=== PATIENT | female | born 1955 | race Two or more races ===

== ENCOUNTER → 2017-02-11 | Outpatient (CLI) | payer OTHER, MEDICAID ==
[~2017-02-11] MED LIST: GADOBUTROL 7.5 MMOL/7.5 ML PFS ONE
== END | disposition home or self-care (01) ==
LOC: CFH 09:43
PROVIDERS: ATTEND Internal Medicine Hematology & Oncology
DX: H70.92 Unspecified mastoiditis, left ear (principal); Z85.3 Personal history of malignant neoplasm of breast
CPT/HCPCS: 70553; A9585

== ENCOUNTER → 2017-02-26 | Outpatient (CLI) | payer OTHER, MEDICAID | END | disposition home or self-care (01) | LOC: ROC 08:50 | PROVIDERS: ATTEND Radiology Radiation Oncology | DX: C50.919 Malignant neoplasm of unspecified site of unspecified female breast (principal); C79.31 Secondary malignant neoplasm of brain | CPT/HCPCS: 99214; G0463 ==

== ENCOUNTER → 2017-03-12 | Outpatient (CLI) | payer OTHER, MEDICAID ==
[~2017-03-12] MED LIST changes: +EZET10TA18 PO; -GADOBUTROL 7.5 MMOL/7.5 ML PFS ONE; +GLIP-164 PO; +HYDR-3237 PO; +LISI-167 PO; +LOVA40TA2 PO; +METF500T4 PO; +METO25TA35 PO; +SITA100T PO; +dexamethasone PO
== END ==
LOC: ORIP 11:09 → UNDOADMIN 11:09 → OUT 11:09 → EDSTATUS 12:00 → UNDODISIN 13:00
PROVIDERS: ATTEND Orthopaedic Surgery
DX: Z02.9 Encounter for administrative examinations, unspecified (principal)

== ENCOUNTER → 2017-04-02 | Outpatient (CLI) | payer OTHER, MEDICAID | END | disposition home or self-care (01) | LOC: ROC 13:26 | PROVIDERS: ATTEND Radiology Radiation Oncology | DX: Z08 Encounter for follow-up examination after completed treatment for malignant neoplasm (principal); C79.51 Secondary malignant neoplasm of bone; G89.3 Neoplasm related pain (acute) (chronic); Z92.3 Personal history of irradiation; Z85.3 Personal history of malignant neoplasm of breast | CPT/HCPCS: 99213; G0463 ==

== ENCOUNTER → 2017-04-10 | Outpatient (CLI) | payer OTHER, MEDICAID | END | disposition home or self-care (01) | LOC: PETCFH 08:42 | PROVIDERS: ATTEND Radiology Radiation Oncology | DX: C79.51 Secondary malignant neoplasm of bone (principal); C79.31 Secondary malignant neoplasm of brain; Z85.3 Personal history of malignant neoplasm of breast; Z90.11 Acquired absence of right breast and nipple | CPT/HCPCS: 78306; A9503 ==

== ENCOUNTER → 2017-04-15 | Outpatient (CLI) | payer OTHER, MEDICAID | END | disposition home or self-care (01) | LOC: ROC 11:05 | PROVIDERS: ATTEND Radiology Radiation Oncology | DX: C71.9 Malignant neoplasm of brain, unspecified (principal); Z85.3 Personal history of malignant neoplasm of breast; Z90.11 Acquired absence of right breast and nipple | CPT/HCPCS: 99213; G0463 ==

== ENCOUNTER 2017-04-22 10:54 | Inpatient (IN) | payer OTHER, MEDICAID ==
[~2017-04-22] VITALS: Ht 152.4 cm; Wt 54.1 kg
[2017-04-22] VITALS (8 sets, daily range): BP systolic 84–96; BP diastolic 49–60
[2017-04-22] MEDS ORDERED: SODIUM CHLORIDE 0.9% 1,000 ML IV ONE ×3 (11:43→14:03)
[2017-04-22] MEDS ORDERED: SODIUM CHLORIDE FLUSH 10ML SYR IVF ONE (12:00)
[2017-04-22] MEDS ORDERED: SODIUM CHLORIDE 0.9% 1,000ML IVBOLUS ONE ×2 (12:00→15:30)
[2017-04-22 12:24] LABS: MICROSCOPIC INDICATED
[2017-04-22 12:25] LABS: CULTURE INDICATED? YES
[2017-04-22 12:51] LABS: INTERNATIONAL NORMALIZED RATIO 1.09 (0.93-1.1); PROTHROMBIN TIME 11.2 Seconds (9.6-11.5)
[2017-04-22 12:56] LABS: ALANINE AMINOTRANSFERASE 16 U/L (12-78); ALBUMIN 2.7 g/dL (3.4-5.0); ANION GAP 12 mmol/L (5-15); CALCIUM 6.8 mg/dL (8.5-10.1); CHLORIDE 89 mmol/L (98-107); CREATININE 1.32 mg/dL (0.55-1.02)
[2017-04-22 13:00] LABS: ALKALINE PHOSPHATASE 150 U/L (45-117); BILIRUBIN,TOTAL 0.5 mg/dL (0.2-1.0); TOTAL PROTEIN 7.1 g/dL (6.4-8.2)
[2017-04-22 13:05] LABS: MEAN CORPUSCULAR HEMOGLOBIN 28.1 pg (27.0-34.8); MEAN CORPUSCULAR HGB CONC 33.8 g/dL (32.4-35.8); MEAN CORPUSCULAR VOLUME 83.1 fL (80-100); MEAN PLATELET VOLUME 8.6 fL (7.4-10.4); PLATELET COUNT 56 x10^3/uL (130-400); RED BLOOD COUNT 2.51 x10^6/uL (3.82-5.3); RED CELL DISTRIBUTION WIDTH 18.6 % (9.6-15.2)
[2017-04-22 13:09] LABS: MD YES
[2017-04-22 13:12] LABS: ANISOCYTOSIS 1+; BAND#(MANUAL) 0.08 x10^3/uL; BANDS%(MANUAL) 8 % (0-7); LYMPH#(MANUAL) 0.11 x10^3/uL (1-3.4); LYMPHS% (MANUAL) 11 % (22-44); MONOS#(MANUAL) 0.01 x10^3/uL (0.3-2.7); MONOS% (MANUAL) 1 % (2-9); SEGS% (MANUAL) 80 % (42-75)
[2017-04-22 13:13] LABS: PMNS WITH VACUOLES 1+
[2017-04-22 13:14] LABS: <PLATELET ESTIMATE> DECREASED; LARGE PLATELETS 1+
[2017-04-22] MEDS ORDERED: CEFTRIAXONE PMX 1GM/50ML 50 ML ONE (13:19)
[2017-04-22] MEDS ORDERED: CEFTRIAXONE PMX 1GM/50ML 50 ML IV ONE (13:30)
[2017-04-22 13:35] LABS: ACETONE, SERUM Trace (10mg/dL) mg/dL (Negative)
[2017-04-22] MEDS ORDERED: METF1000 PO (13:37)
[2017-04-22] MEDS ORDERED: ASPI-496 PO (13:37)
[2017-04-22] MEDS ORDERED: GLIP10TA13 PO (13:37)
[2017-04-22] MEDS ORDERED: SITA100T PO (13:37)
[2017-04-22] MEDS ORDERED: METO25TA35 PO (13:37)
[2017-04-22] MEDS ORDERED: HYDR-3240 PO (13:37)
[2017-04-22] MEDS ORDERED: BENZ200C48 PO (13:37)
[2017-04-22] MEDS ORDERED: PALB125C PO (13:37)
[2017-04-22] MEDS ORDERED: LOVA40TA2 PO (13:37)
[2017-04-22] MEDS ORDERED: OMEP-110 PO (13:37)
[2017-04-22] MEDS ORDERED: LISI-167 PO (13:37)
[2017-04-22] MEDS ORDERED: EZET10TA18 PO (13:37)
[2017-04-22] MEDS ORDERED: AZIT250T89 PO (13:37)
[2017-04-22] MEDS ORDERED: SODIUM CHLORIDE FLUSH 10ML SYR IVF PRN (14:30)
[2017-04-22] MEDS ORDERED: ACETAMINOPHEN 325 MG TABLET PO PRN (15:30)
[2017-04-22] MEDS ORDERED: DIPHENHYDRAMINE 25 MG CAPSULE PO PRN (15:30)
[2017-04-22] MEDS ORDERED: ONDANSETRON 2MG/ML, 2ML IVPush PRN (15:30)
[2017-04-22] MEDS ORDERED: METOCLOPRAMIDE 5 MG/ML, 2ML IVPush PRN (15:30)
[2017-04-22] MEDS ORDERED: LORazepam 2 MG/ML, 1ML IVPush PRN (15:30)
[2017-04-22] MEDS ORDERED: ONDANSETRON ODT 4 MG PO PRN (15:30)
[2017-04-22] MEDS: BENZONATATE 100 MG CAPSULE PO SCH ×2 (16:27→21:39)
[2017-04-22] MEDS: INSULIN LISPRO 100 UNITS/ML, PEN SQ-INSULIN SCH ×2 (16:30→21:40)
[2017-04-22 18:29] LABS: CLOSTRIDIUM DIFFICILE ANTIGEN NEGATIVE; CLOSTRIDIUM DIFFICILE TOXIN NEGATIVE (Negative)
[2017-04-22 18:34] LABS: ANION GAP 11 mmol/L (5-15); CALCIUM 6.1 mg/dL (8.5-10.1); CHLORIDE 96 mmol/L (98-107); CREATININE 0.97 mg/dL (0.55-1.02)
[2017-04-22] MEDS ORDERED: VANCOMYCIN PMX 1GM/200ML 200 ML IV ONE (19:00)
[2017-04-22] MEDS ORDERED: VANCOMYCIN PER PHARMACY MC PRN (19:00)
[2017-04-22] MEDS ORDERED: NOREPINEPHRINE 1 MG/ML, 4ML ONE (19:17)
[2017-04-22] MEDS ORDERED: NOREPINEPHRINE 4 MG in SODIUM CHLORIDE 0.9% 246 ML IV PRN (19:30)
[2017-04-22] MEDS ORDERED: PHARMACOKINETIC MONITORING MC PRN (19:30)
[2017-04-22] MEDS ORDERED: PHARMACOKINETIC CONSULTATION MC ONE (19:30)
[2017-04-22 19:52] LABS: ALANINE AMINOTRANSFERASE 11 U/L (12-78); ALBUMIN 1.9 g/dL (3.4-5.0); ANION GAP 10 mmol/L (5-15); CHLORIDE 100 mmol/L (98-107); CREATININE 0.94 mg/dL (0.55-1.02)
[2017-04-22 19:54] LABS: ALKALINE PHOSPHATASE 121 U/L (45-117); BILIRUBIN,TOTAL 1.1 mg/dL (0.2-1.0); TOTAL PROTEIN 5.3 g/dL (6.4-8.2)
[2017-04-22 20:02] LABS: CALCIUM 5.8 mg/dL (8.5-10.1)
[2017-04-22] MEDS: PIPERACILLIN/TAZO/PMX 4.5GM 100 ML IV SCH (20:14)
[2017-04-22 20:20] LABS: MD YES; MEAN CORPUSCULAR HEMOGLOBIN 28.4 pg (27.0-34.8); MEAN CORPUSCULAR HGB CONC 34.4 g/dL (32.4-35.8); MEAN CORPUSCULAR VOLUME 82.5 fL (80-100); MEAN PLATELET VOLUME 8.6 fL (7.4-10.4); RED BLOOD COUNT 3.12 x10^6/uL (3.82-5.3); RED CELL DISTRIBUTION WIDTH 17.6 % (9.6-15.2)
[2017-04-22 20:26] LABS: LYMPHS% (MANUAL) 32 % (22-44); MONOS% (MANUAL) 4 % (2-9); SEGS% (MANUAL) 64 % (42-75)
[2017-04-22 20:28] LABS: ANISOCYTOSIS 1+; PMNS WITH VACUOLES 1+
[2017-04-22 20:29] LABS: <PLATELET ESTIMATE> DECREASED; <PLT MORPHOLOGY> QNS FOR PLT MORPH
[2017-04-22 20:32] LABS: PLATELET COUNT 28 x10^3/uL (130-400)
[2017-04-22 20:38] LABS: LYMPH#(MANUAL) 0.16 x10^3/uL (1-3.4); MONOS#(MANUAL) 0.02 x10^3/uL (0.3-2.7); SEG#(MANUAL) 0.32 x10^3/uL (1.8-6.8)
[2017-04-22] MEDS ORDERED: METOPROLOL TARTRATE 25 MG TABLET PO SCH (21:00)
[2017-04-22] MEDS ORDERED: POTASSIUM CHLORIDE 40 MEQ in SODIUM CHLORIDE 0.9% 100 ML IV ONE (21:30)
[2017-04-22] MEDS ORDERED: CALCIUM GLUCONATE 9.2 MEQ in SODIUM CHLORIDE 0.9% 100 ML IV ONE (21:30)
[2017-04-22] MEDS ORDERED: MAGNESIUM SULFATE PMX 4GM/100M 100 ML IV ONE (21:30)
[2017-04-22] MEDS ORDERED: POTASSIUM CHLORIDE 20 MEQ TAB.ER.PRT PO ONE (21:30)
[2017-04-22] MEDS: LOVASTATIN 40 MG TABLET PO SCH (21:39)
[2017-04-22] MEDS: SODIUM CHLORIDE 0.9% 1,000 ML IV SCH (21:42)
[2017-04-22] MEDS ORDERED: VANCOMYCIN PMX 1GM/200ML 200 ML IV SCH (22:00)
[2017-04-22 22:35] LABS: D-DIMER (DIC) 1.83 ug/mlFEU (0.00-0.52); PROTIME 12.1 Seconds (9.6-11.5)
[2017-04-22] MEDS: ALBUMIN HUMAN 25% 50 ML IV SCH (22:43)
[2017-04-23] MEDS: HYDROcodone/APAP 5/325 TABLET PO PRN ×2 (00:37→21:14)
[2017-04-23] MEDS: morphine SULFATE 10 MG/ML, 1ML IVPush PRN ×2 (00:45→05:19)
[2017-04-23 02:48] VITALS: BP 94/50
[2017-04-23] MEDS: PIPERACILLIN/TAZO/PMX 4.5GM 100 ML IV SCH ×2 (03:09→08:15)
[2017-04-23 05:18] LABS: ALANINE AMINOTRANSFERASE 11 U/L (12-78); ALBUMIN 2.1 g/dL (3.4-5.0); ANION GAP 10 mmol/L (5-15); CALCIUM 6.6 mg/dL (8.5-10.1); CHLORIDE 100 mmol/L (98-107)
[2017-04-23 05:22] LABS: ALKALINE PHOSPHATASE 123 U/L (45-117); BILIRUBIN,TOTAL 1.7 mg/dL (0.2-1.0); CREATININE 0.82 mg/dL (0.55-1.02); TOTAL PROTEIN 5.6 g/dL (6.4-8.2)
[2017-04-23 05:30] LABS: MEAN CORPUSCULAR HEMOGLOBIN 28.3 pg (27.0-34.8); MEAN CORPUSCULAR HGB CONC 34.2 g/dL (32.4-35.8); MEAN CORPUSCULAR VOLUME 82.5 fL (80-100); RED BLOOD COUNT 3.32 x10^6/uL (3.82-5.3)
[2017-04-23 05:49] LABS: MD YES
[2017-04-23 05:53] LABS: MEAN PLATELET VOLUME 8.9 fL (7.4-10.4)
[2017-04-23 05:54] LABS: PLATELET COUNT 20 x10^3/uL (130-400)
[2017-04-23 05:55] LABS: BAND#(MANUAL) 0.05 x10^3/uL; BANDS%(MANUAL) 8 % (0-7); LYMPH#(MANUAL) 0.14 x10^3/uL (1-3.4); LYMPHS% (MANUAL) 24 % (22-44); METAMYELOCYTES# (MANUAL) 0.01 x10^3/uL (0-0); METAMYELOCYTES% (MANUAL) 2 % (0-1); MONOS#(MANUAL) 0.01 x10^3/uL (0.3-2.7); MONOS% (MANUAL) 2 % (2-9); SEG#(MANUAL) 0.38 x10^3/uL (1.8-6.8); SEGS% (MANUAL) 64 % (42-75)
[2017-04-23 05:56] LABS: ANISOCYTOSIS 1+; PMNS WITH VACUOLES 1+
[2017-04-23 06:00] LABS: <PLATELET ESTIMATE> DECREASED; <PLT MORPHOLOGY> NORMAL PLT MORPH
[2017-04-23] MEDS: ALBUMIN HUMAN 25% 50 ML IV SCH ×2 (06:18→15:52)
[2017-04-23] MEDS ORDERED: LISINOPRIL 10 MG TABLET PO SCH (09:00)
[2017-04-23] MEDS ORDERED: OMEPRAZOLE 20 MG CAPSULE.DR PO SCH (09:00)
[2017-04-23] MEDS ORDERED: EZETIMIBE 10 MG TABLET PO SCH (09:00)
[2017-04-23] MEDS ORDERED: PALBOCICLIB HOMEMEDPO SCH (09:00)
[2017-04-23] MEDS ORDERED: VANCOMYCIN PMX 1GM/200ML 200 ML IV SCH (10:00)
[2017-04-23] MEDS: SODIUM CHLORIDE 0.9% 1,000 ML IV SCH ×2 (10:18→16:38)
[2017-04-23] MEDS: BENZONATATE 100 MG CAPSULE PO SCH ×3 (10:20→21:01)
[2017-04-23] MEDS: INSULIN LISPRO 100 UNITS/ML, PEN SQ-INSULIN SCH ×4 (10:21→21:11)
[2017-04-23] MEDS ORDERED: SODIUM CHLORIDE IVPB SCH (16:30)
[2017-04-23] MEDS ORDERED: MEROPENEM 1 GM/50 ML IVPB SCH (16:30)
[2017-04-23] MEDS: MEROPENEM 1 GM in SODIUM CHLORIDE 0.9% 100 ML IV SCH (16:39)
[2017-04-23 17:10] VITALS: BP 112/60
[2017-04-23] MEDS: TBO-FILGRASTIM 480 MCG/0.8 ML SQ SCH (17:41)
[2017-04-23] MEDS: MICAFUNGIN 100 MG in SODIUM CHLORIDE 0.9% 100 ML IV SCH (17:45)
[2017-04-23 19:06] VITALS: BP 93/50
[2017-04-23] MEDS: LOVASTATIN 40 MG TABLET PO SCH (21:01)
[2017-04-24] MEDS: SODIUM CHLORIDE 0.9% 1,000 ML IV SCH ×3 (00:50→13:20)
[2017-04-24] MEDS: MEROPENEM 1 GM in SODIUM CHLORIDE 0.9% 100 ML IV SCH ×4 (00:50→23:55)
[2017-04-24 01:02] VITALS: BP 96/52
[2017-04-24 06:05] LABS: ALANINE AMINOTRANSFERASE 9 U/L (12-78); ANION GAP 7 mmol/L (5-15); CALCIUM 6.7 mg/dL (8.5-10.1); CHLORIDE 107 mmol/L (98-107); CREATININE 0.55 mg/dL (0.55-1.02)
[2017-04-24 06:07] LABS: ALKALINE PHOSPHATASE 111 U/L (45-117); BILIRUBIN,TOTAL 0.5 mg/dL (0.2-1.0); TOTAL PROTEIN 5.1 g/dL (6.4-8.2)
[2017-04-24 06:36] LABS: MD YES; MEAN CORPUSCULAR HEMOGLOBIN 28.1 pg (27.0-34.8); MEAN CORPUSCULAR HGB CONC 34.3 g/dL (32.4-35.8); RED CELL DISTRIBUTION WIDTH 17.6 % (9.6-15.2)
[2017-04-24 06:40] LABS: PLATELET COUNT 14 x10^3/uL (130-400)
[2017-04-24] MEDS: INSULIN LISPRO 100 UNITS/ML, PEN SQ-INSULIN SCH ×4 (07:00→20:43)
[2017-04-24] MEDS: BENZONATATE 100 MG CAPSULE PO SCH ×3 (07:41→20:38)
[2017-04-24 07:49] VITALS: BP 124/76
[2017-04-24 08:01] LABS: BAND#(MANUAL) 0.07 x10^3/uL; BANDS%(MANUAL) 8 % (0-7); LYMPH#(MANUAL) 0.22 x10^3/uL (1-3.4); LYMPHS% (MANUAL) 24 % (22-44); SEGS% (MANUAL) 66 % (42-75)
[2017-04-24 08:02] LABS: MONOS#(MANUAL) 0.02 x10^3/uL (0.3-2.7); MONOS% (MANUAL) 2 % (2-9); SEG#(MANUAL) 0.59 x10^3/uL (1.8-6.8)
[2017-04-24 08:03] LABS: <PLATELET ESTIMATE> DECREASED; <PLT MORPHOLOGY> NORMAL PLT MORPH; ANISOCYTOSIS 1+
[2017-04-24] MEDS: TBO-FILGRASTIM 480 MCG/0.8 ML SQ SCH (08:08)
[2017-04-24 13:40] VITALS: BP 115/63
[2017-04-24] MEDS ORDERED: POTASSIUM PHOS 4.4 MEQ/ML IV ONE ×2 (15:00→16:30)
[2017-04-24] MEDS: MICAFUNGIN 100 MG in SODIUM CHLORIDE 0.9% 100 ML IV SCH (15:27)
[2017-04-24] MEDS ORDERED: POTASSIUM PHOSPHATE 22 MEQ in SODIUM CHLORIDE 0.9% 250 ML IV ONE (16:20)
[2017-04-24] MEDS ORDERED: POTASSIUM CHLORIDE 20 MEQ TAB.ER.PRT PO ONE (16:30)
[2017-04-24 19:40] VITALS: BP 120/65
[2017-04-24] MEDS: LOVASTATIN 40 MG TABLET PO SCH (20:38)
[2017-04-25 01:42] VITALS: BP 119/65
[2017-04-25 04:46] LABS: CHLORIDE 104 mmol/L (98-107)
[2017-04-25 04:47] LABS: ANION GAP 9 mmol/L (5-15); CALCIUM 7.3 mg/dL (8.5-10.1); CREATININE 0.61 mg/dL (0.55-1.02)
[2017-04-25 05:14] LABS: MEAN CORPUSCULAR HEMOGLOBIN 28.3 pg (27.0-34.8); MEAN CORPUSCULAR HGB CONC 34.6 g/dL (32.4-35.8); MEAN CORPUSCULAR VOLUME 81.6 fL (80-100); RED BLOOD COUNT 3.14 x10^6/uL (3.82-5.3); RED CELL DISTRIBUTION WIDTH 17.6 % (9.6-15.2)
[2017-04-25 05:51] LABS: MD YES
[2017-04-25 05:53] LABS: <PLATELET ESTIMATE> DECREASED; ANISOCYTOSIS 1+; BAND#(MANUAL) 0.02 x10^3/uL; BANDS%(MANUAL) 2 % (0-7); LYMPH#(MANUAL) 0.23 x10^3/uL (1-3.4); LYMPHS% (MANUAL) 26 % (22-44); MEAN PLATELET VOLUME 9.9 fL (7.4-10.4); METAMYELOCYTES# (MANUAL) 0.02 x10^3/uL (0-0); METAMYELOCYTES% (MANUAL) 2 % (0-1); MONOS#(MANUAL) 0.02 x10^3/uL (0.3-2.7); MONOS% (MANUAL) 2 % (2-9); SEG#(MANUAL) 0.61 x10^3/uL (1.8-6.8); SEGS% (MANUAL) 68 % (42-75)
[2017-04-25 05:54] LABS: <PLT MORPHOLOGY> NORMAL PLT MORPH
[2017-04-25 05:56] LABS: PLATELET COUNT 16 x10^3/uL (130-400)
[2017-04-25] MEDS: INSULIN LISPRO 100 UNITS/ML, PEN SQ-INSULIN SCH ×4 (07:00→20:53)
[2017-04-25] MEDS: BENZONATATE 100 MG CAPSULE PO SCH ×3 (07:37→20:53)
[2017-04-25] MEDS: POTASSIUM CHLORIDE 20 MEQ TAB.ER.PRT PO SCH ×2 (07:38→17:18)
[2017-04-25] MEDS: MEROPENEM 1 GM in SODIUM CHLORIDE 0.9% 100 ML IV SCH ×3 (07:38→23:38)
[2017-04-25] MEDS ORDERED: MAGNESIUM SULFATE PMX 4GM/100M 100 ML IV ONE (08:00)
[2017-04-25] MEDS ORDERED: POTASSIUM PHOSPHATE 44 MEQ in SODIUM CHLORIDE 0.9% 500 ML IV ONE (08:00)
[2017-04-25 09:21] VITALS: BP 116/68
[2017-04-25] MEDS ORDERED: GUAIFENESIN/DM 200-20MG, 10ML UDC PO PRN (09:30)
[2017-04-25] MEDS: TBO-FILGRASTIM 480 MCG/0.8 ML SQ SCH (09:31)
[2017-04-25] MEDS: GUAIFENESIN ER 600 MG TABLET PO SCH ×2 (11:08→20:52)
[2017-04-25 12:57] VITALS: BP 132/71
[2017-04-25] MEDS ORDERED: POTASSIUM PHOSPHATE 22 MEQ in SODIUM CHLORIDE 0.9% 250 ML IV SCH (15:00)
[2017-04-25] MEDS: MICAFUNGIN 100 MG in SODIUM CHLORIDE 0.9% 100 ML IV SCH (17:18)
[2017-04-25 20:04] VITALS: BP 116/71
[2017-04-25] MEDS: LOVASTATIN 40 MG TABLET PO SCH (20:52)
[2017-04-26 03:20] VITALS: BP 119/75
[2017-04-26 04:30] LABS: MEAN CORPUSCULAR HEMOGLOBIN 27.7 pg (27.0-34.8); MEAN CORPUSCULAR HGB CONC 33.8 g/dL (32.4-35.8); MEAN PLATELET VOLUME 8.5 fL (7.4-10.4); RED BLOOD COUNT 3.57 x10^6/uL (3.82-5.3); RED CELL DISTRIBUTION WIDTH 17.4 % (9.6-15.2)
[2017-04-26 04:34] LABS: PLATELET COUNT 15 x10^3/uL (130-400)
[2017-04-26 04:36] LABS: ALANINE AMINOTRANSFERASE 11 U/L (12-78); ALBUMIN 2.6 g/dL (3.4-5.0); ANION GAP 13 mmol/L (5-15); CALCIUM 8.3 mg/dL (8.5-10.1); CHLORIDE 97 mmol/L (98-107); CREATININE 0.67 mg/dL (0.55-1.02)
[2017-04-26 04:38] LABS: ALKALINE PHOSPHATASE 134 U/L (45-117); BILIRUBIN,TOTAL 0.9 mg/dL (0.2-1.0); TOTAL PROTEIN 6.5 g/dL (6.4-8.2)
[2017-04-26 05:44] LABS: MD YES
[2017-04-26 05:47] LABS: BAND#(MANUAL) 0.03 x10^3/uL; BANDS%(MANUAL) 4 % (0-7); LYMPH#(MANUAL) 0.26 x10^3/uL (1-3.4); LYMPHS% (MANUAL) 32 % (22-44); MONOS#(MANUAL) 0.02 x10^3/uL (0.3-2.7); MONOS% (MANUAL) 2 % (2-9); SEGS% (MANUAL) 62 % (42-75)
[2017-04-26 05:48] LABS: ANISOCYTOSIS 1+
[2017-04-26 05:49] LABS: <PLATELET ESTIMATE> DECREASED
[2017-04-26 05:50] LABS: <PLT MORPHOLOGY> NORMAL PLT MORPH
[2017-04-26] MEDS ORDERED: POTASSIUM PHOSPHATE 44 MEQ in SODIUM CHLORIDE 0.9% 500 ML IV ONE (08:00)
[2017-04-26] MEDS ORDERED: MAGNESIUM SULFATE PMX 4GM/100M 100 ML IV ONE (08:00)
[2017-04-26] MEDS: SODIUM CHLORIDE 0.9% 1,000 ML IV SCH ×2 (08:22→22:23)
[2017-04-26] MEDS: MEROPENEM 1 GM in SODIUM CHLORIDE 0.9% 100 ML IV SCH ×2 (08:22→16:53)
[2017-04-26] MEDS: GUAIFENESIN ER 600 MG TABLET PO SCH ×2 (08:24→22:21)
[2017-04-26] MEDS: BENZONATATE 100 MG CAPSULE PO SCH ×3 (08:25→22:21)
[2017-04-26] MEDS: INSULIN LISPRO 100 UNITS/ML, PEN SQ-INSULIN SCH ×4 (08:31→22:33)
[2017-04-26 09:56] VITALS: BP 107/69
[2017-04-26] MEDS: METOPROLOL TARTRATE 25 MG TABLET PO SCH ×2 (10:17→17:46)
[2017-04-26] MEDS: TBO-FILGRASTIM 480 MCG/0.8 ML SQ SCH (10:18)
[2017-04-26] MEDS ORDERED: PHARMACOKINETIC CONSULTATION MC ONE (14:00)
[2017-04-26] MEDS ORDERED: VANCOMYCIN PER PHARMACY MC PRN (14:00)
[2017-04-26] MEDS ORDERED: PHARMACOKINETIC MONITORING MC PRN (14:00)
[2017-04-26] MEDS: VANCOMYCIN PMX 1GM/200ML 200 ML IV SCH (15:07)
[2017-04-26 17:43] VITALS: BP 106/68
[2017-04-26] MEDS: MICAFUNGIN 100 MG in SODIUM CHLORIDE 0.9% 100 ML IV SCH (17:48)
[2017-04-26 19:19] VITALS: BP 109/62
[2017-04-26] MEDS: LOVASTATIN 40 MG TABLET PO SCH (22:21)
[2017-04-27] MEDS: MEROPENEM 1 GM in SODIUM CHLORIDE 0.9% 100 ML IV SCH ×3 (01:13→16:38)
[2017-04-27 05:56] VITALS: BP 108/68
[2017-04-27 06:11] LABS: ALBUMIN 2.5 g/dL (3.4-5.0); ANION GAP 7 mmol/L (5-15); CALCIUM 8.2 mg/dL (8.5-10.1); CHLORIDE 102 mmol/L (98-107)
[2017-04-27] MEDS: SODIUM CHLORIDE 0.9% 1,000 ML IV SCH ×2 (06:13→21:52)
[2017-04-27 06:16] LABS: ALANINE AMINOTRANSFERASE 11 U/L (12-78); ALKALINE PHOSPHATASE 138 U/L (45-117); BILIRUBIN,TOTAL 0.6 mg/dL (0.2-1.0); CREATININE 0.61 mg/dL (0.55-1.02); TOTAL PROTEIN 6.2 g/dL (6.4-8.2)
[2017-04-27 06:21] LABS: MEAN CORPUSCULAR HEMOGLOBIN 28.4 pg (27.0-34.8); MEAN CORPUSCULAR HGB CONC 34.4 g/dL (32.4-35.8); MEAN CORPUSCULAR VOLUME 82.4 fL (80-100); RED BLOOD COUNT 3.44 x10^6/uL (3.82-5.3); RED CELL DISTRIBUTION WIDTH 17.4 % (9.6-15.2)
[2017-04-27 06:38] LABS: MD YES; PLATELET COUNT 13 x10^3/uL (130-400)
[2017-04-27 06:46] LABS: <PLATELET ESTIMATE> DECREASED; ANISOCYTOSIS 1+; BAND#(MANUAL) 0.17 x10^3/uL; BANDS%(MANUAL) 7 % (0-7); LYMPH#(MANUAL) 0.43 x10^3/uL (1-3.4); LYMPHS% (MANUAL) 18 % (22-44); MONOS#(MANUAL) 0.12 x10^3/uL (0.3-2.7); MONOS% (MANUAL) 5 % (2-9); SEG#(MANUAL) 1.68 x10^3/uL (1.8-6.8); SEGS% (MANUAL) 70 % (42-75)
[2017-04-27 06:47] LABS: <PLT MORPHOLOGY> QNS FOR PLT MORPH
[2017-04-27] MEDS: INSULIN LISPRO 100 UNITS/ML, PEN SQ-INSULIN SCH ×4 (07:11→21:57)
[2017-04-27] MEDS: TBO-FILGRASTIM 480 MCG/0.8 ML SQ SCH (09:00)
[2017-04-27 09:14] VITALS: BP 105/72
[2017-04-27] MEDS: METOPROLOL TARTRATE 25 MG TABLET PO SCH ×2 (09:21→18:41)
[2017-04-27] MEDS: GUAIFENESIN ER 600 MG TABLET PO SCH ×2 (09:21→21:52)
[2017-04-27] MEDS: BENZONATATE 100 MG CAPSULE PO SCH ×3 (09:21→21:52)
[2017-04-27] MEDS: VANCOMYCIN PMX 1GM/200ML 200 ML IV SCH (10:18)
[2017-04-27 15:32] VITALS: BP 113/72
[2017-04-27 18:34] VITALS: BP 135/93
[2017-04-27] MEDS: LOVASTATIN 40 MG TABLET PO SCH (21:52)
[2017-04-28] MEDS: MEROPENEM 1 GM in SODIUM CHLORIDE 0.9% 100 ML IV SCH ×3 (00:30→18:21)
[2017-04-28] MEDS: VANCOMYCIN PMX 1GM/200ML 200 ML IV SCH ×2 (03:06→03:14)
[2017-04-28 03:17] VITALS: BP 109/70
[2017-04-28] MEDS: INSULIN LISPRO 100 UNITS/ML, PEN SQ-INSULIN SCH ×4 (07:39→20:13)
[2017-04-28 07:40] VITALS: BP 109/70
[2017-04-28] MEDS: BENZONATATE 100 MG CAPSULE PO SCH ×3 (09:47→20:08)
[2017-04-28] MEDS: GUAIFENESIN ER 600 MG TABLET PO SCH ×2 (09:47→20:07)
[2017-04-28] MEDS: METOPROLOL TARTRATE 25 MG TABLET PO SCH ×2 (09:47→18:21)
[2017-04-28 11:38] LABS: ALBUMIN 2.7 g/dL (3.4-5.0); ANION GAP 8 mmol/L (5-15); CALCIUM 8.3 mg/dL (8.5-10.1); CHLORIDE 102 mmol/L (98-107)
[2017-04-28 11:43] LABS: ALANINE AMINOTRANSFERASE 14 U/L (12-78); ALKALINE PHOSPHATASE 169 U/L (45-117); BILIRUBIN,TOTAL 0.6 mg/dL (0.2-1.0); CREATININE 0.85 mg/dL (0.55-1.02); TOTAL PROTEIN 6.7 g/dL (6.4-8.2)
[2017-04-28 12:14] LABS: MEAN CORPUSCULAR HEMOGLOBIN 27.9 pg (27.0-34.8); MEAN CORPUSCULAR HGB CONC 33.8 g/dL (32.4-35.8); MEAN CORPUSCULAR VOLUME 82.6 fL (80-100); RED BLOOD COUNT 3.64 x10^6/uL (3.82-5.3); RED CELL DISTRIBUTION WIDTH 17.2 % (9.6-15.2)
[2017-04-28 12:15] LABS: BAND#(MANUAL) 0.62 x10^3/uL; BANDS%(MANUAL) 15 % (0-7); EOS#(MANUAL) 0.04 x10^3/uL (0.0-0.4); EOS% (MANUAL) 1 % (1-7); LYMPH#(MANUAL) 0.94 x10^3/uL (1-3.4); LYMPHS% (MANUAL) 23 % (22-44); MD YES; MONOS#(MANUAL) 0.08 x10^3/uL (0.3-2.7); MONOS% (MANUAL) 2 % (2-9); SEG#(MANUAL) 2.42 x10^3/uL (1.8-6.8); SEGS% (MANUAL) 59 % (42-75)
[2017-04-28 12:17] LABS: <PLATELET ESTIMATE> DECREASED; <RBC MORPHOLOGY> NORMAL
[2017-04-28 12:18] LABS: LARGE PLATELETS 1+; MEAN PLATELET VOLUME 10.6 fL (7.4-10.4)
[2017-04-28 13:07] LABS: PLATELET COUNT 20 x10^3/uL (130-400)
[2017-04-28] MEDS: SODIUM CHLORIDE 0.9% 1,000 ML IV SCH (13:35)
[2017-04-28 15:54] VITALS: BP 120/73
[2017-04-28 18:50] VITALS: BP 146/93
[2017-04-28] MEDS: LOVASTATIN 40 MG TABLET PO SCH (20:07)
[2017-04-29 01:05] VITALS: BP 112/71
[2017-04-29] MEDS: SODIUM CHLORIDE 0.9% 1,000 ML IV SCH ×2 (02:03→16:00)
[2017-04-29] MEDS: MEROPENEM 1 GM in SODIUM CHLORIDE 0.9% 100 ML IV SCH ×2 (02:03→10:50)
[2017-04-29] MEDS: METOPROLOL TARTRATE 25 MG TABLET PO SCH ×2 (06:00→16:07)
[2017-04-29 07:02] VITALS: BP 118/79
[2017-04-29 07:02] LABS: ALANINE AMINOTRANSFERASE 12 U/L (12-78); ALBUMIN 2.7 g/dL (3.4-5.0); ANION GAP 7 mmol/L (5-15); CALCIUM 8.5 mg/dL (8.5-10.1); CHLORIDE 105 mmol/L (98-107)
[2017-04-29 07:05] LABS: ALKALINE PHOSPHATASE 177 U/L (45-117); BILIRUBIN,TOTAL 0.4 mg/dL (0.2-1.0); TOTAL PROTEIN 6.5 g/dL (6.4-8.2)
[2017-04-29 07:29] LABS: MEAN CORPUSCULAR HEMOGLOBIN 27.8 pg (27.0-34.8); MEAN CORPUSCULAR HGB CONC 33.8 g/dL (32.4-35.8); MEAN CORPUSCULAR VOLUME 82.4 fL (80-100); MEAN PLATELET VOLUME 9.6 fL (7.4-10.4); RED BLOOD COUNT 3.48 x10^6/uL (3.82-5.3); RED CELL DISTRIBUTION WIDTH 17.2 % (9.6-15.2)
[2017-04-29 07:31] LABS: PLATELET COUNT 31 x10^3/uL (130-400)
[2017-04-29 07:33] LABS: MD YES
[2017-04-29 07:41] LABS: ANISOCYTOSIS 1+; BAND#(MANUAL) 0.22 x10^3/uL; BANDS%(MANUAL) 6 % (0-7); BASOS#(MANUAL) 0.04 x10^3/uL (0-0.1); BASOS% (MANUAL) 1 % (0-1); LYMPH#(MANUAL) 0.76 x10^3/uL (1-3.4); LYMPHS% (MANUAL) 21 % (22-44); MONOS#(MANUAL) 0.14 x10^3/uL (0.3-2.7); MONOS% (MANUAL) 4 % (2-9); REACTIVE LYMPHS # (MANUAL) 0.07 x10^3/uL (0-0); REACTIVE LYMPHS % (MANUAL) 2 % (0-0); SEG#(MANUAL) 2.41 x10^3/uL (1.8-6.8); SEGS% (MANUAL) 67 % (42-75)
[2017-04-29 07:44] LABS: <PLATELET ESTIMATE> DECREASED; LARGE PLATELETS 1+
[2017-04-29] MEDS: INSULIN LISPRO 100 UNITS/ML, PEN SQ-INSULIN SCH ×3 (07:45→16:08)
[2017-04-29] MEDS: BENZONATATE 100 MG CAPSULE PO SCH ×2 (07:58→16:08)
[2017-04-29] MEDS: GUAIFENESIN ER 600 MG TABLET PO SCH (07:58)
[2017-04-29 13:14] VITALS: BP 110/72
[2017-04-29] MEDS ORDERED: ERTA1VIA IV (15:28)
[2017-04-29] MEDS ORDERED: ERTAPENEM 1 GM in SODIUM CHLORIDE 0.9% 50 ML IV SCH (16:00)
== END 2017-04-29 19:00 | disposition home or self-care (01) | DRG 871 ==
LOC: ED 14:02 → EDIP 14:03 → ED 14:28 → 3NW 15:22 → ICU 18:37 → 3NW 04-23 17:01
PROVIDERS: ADMIT Internal Medicine; ATTEND Family Medicine
PROC: 30233N1 Transfusion of Nonautologous Red Blood Cells into Peripheral Vein, Percutaneous Approach (ICD-10-PCS; principal; 2017-04-22)
PROC: 02HV33Z Insertion of Infusion Device into Superior Vena Cava, Percutaneous Approach (ICD-10-PCS; 2017-04-23)
PROC: B548ZZA Ultrasonography of Superior Vena Cava, Guidance (ICD-10-PCS; 2017-04-23)
DX: A41.9 Sepsis, unspecified organism (principal); N17.0 Acute kidney failure with tubular necrosis; R65.21 Severe sepsis with septic shock; D61.818 Other pancytopenia; C79.51 Secondary malignant neoplasm of bone; E44.0 Moderate protein-calorie malnutrition; E83.39 Other disorders of phosphorus metabolism; E83.42 Hypomagnesemia; N39.0 Urinary tract infection, site not specified; E87.1 Hypo-osmolality and hyponatremia; B96.20 Unspecified Escherichia coli [E. coli] as the cause of diseases classified elsewhere; E11.9 Type 2 diabetes mellitus without complications; D63.8 Anemia in other chronic diseases classified elsewhere; E78.5 Hyperlipidemia, unspecified; I10 Essential (primary) hypertension; R04.0 Epistaxis; Z16.12 Extended spectrum beta lactamase (ESBL) resistance; Z79.811 Long term (current) use of aromatase inhibitors; Z79.84 Long term (current) use of oral hypoglycemic drugs; Z85.3 Personal history of malignant neoplasm of breast; Z85.830 Personal history of malignant neoplasm of bone; Z90.710 Acquired absence of both cervix and uterus; Z79.82 Long term (current) use of aspirin; Z68.23 Body mass index [BMI] 23.0-23.9, adult
CPT/HCPCS: 36415; 36430; 36569; 70450; 71045; 76937; 77001; 80048; 80053; 81001; 82010; 82533; 82800; 82962; 83605; 83615; 83735; 83880; 84100; 84145; 85025; 85049; 85379; 85384; 85610; 85730; 86850; 86900; 86923; 87040; 87077; 87081; 87086; 87186; 87324; 89055; 93005; 96361; 96365; J0610; J0696; J1335; J2185; J2248; J2405; J2543; J3370; J3480; P9047; C1751; J1447; J2270; J3475; J7030; J7040; J7050; P9016